=== PATIENT | female | born 1940 | race Caucasian/White ===

== ENCOUNTER → 2016-11-01 | Outpatient (CLI) | payer MEDICARE, OTHER ==
[~2016-11-01] MED LIST: ASPIRIN PO; CRESTOR PO; IMDUR PO; LEVAQUIN PO; MOEXIPRIL HCL15 MG PO; NASONEX17 GM
--- NOTE | ~2016-11-01 | CT71 ---
[facility] A Service of [facility] & [facility] RADIOLOGY TEXT RESULTS PATIENT: CL PONCE LOCATION: [facility] : 36 UNIT #: [id number] AGE: [address]: Michelle Bowers MD SEX: F ORDER DR: [id number] [place] [id number] O MR#: [id number] Acc #: [id number] NAME: CL PONCE : 1940 SEX: F STUDY DATE/TIME: 11/01/2016 10:37 UNIT: [facility] ROOM: STUDY DESCRIPTION: CT Head Wo Contrast Attending Physician: Michelle Bowers M.D. Referring Physician: Michelle Bowers M.D. Ordering Physician: Argentina Borges A.P.R.N. Primary Care Physician: Michelle Bowers M.D. MEDICAL IMAGING REPORT This report is preliminary unless electronic signature is present. EXAM CT head without contrast dated 11/01/2016 COMPARISON None HISTORY Headaches for several months, getting worse. FINDINGS CT of the head was obtained without contrast. This CT exam was performed with one or more of the following radiation dose reduction techniques: automatic exposure control, adjustment of mA and/or kV according to patient size, and iterative reconstruction. FINDINGS No acute intracranial hemorrhage, space-occupying mass, mass effect, midline shift or hydrocephalus. Diffuse age-appropriate parenchymal volume loss is seen. Nasal septum is deviated to the right. 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 Small nodular mucosal thickening is in the left maxillary antrum medially. Mild irregularity is noted in bilateral nasal bones which could be related to subtle old fracture. No acute injury is seen given normal adjacent soft tissue. Status post bilateral cataract surgery. Orbits of the ocular structures and mastoids are unremarkable. IMPRESSION 1. No demonstrable significant intracranial abnormality. 2. Nasal septal deviation to the left with large left janay bullosa of the middle turbinate and small nodular mucosal thickening in the left maxillary antrum. 3. Mild irregularity of bilateral nasal bones are noted particularly in the right. Given the lack of adjacent soft tissue swelling, it STS. [facility] A Service of [facility] & [facility] RADIOLOGY TEXT RESULTS PATIENT: CL PONCE LOCATION: [facility] : 36 UNIT #: [id number] AGE: [address]: Michelle Bowers MD SEX: F ORDER DR: could be related to old trauma with mild fracture. No acute injury. Dictated by... Dc Hannon M.D. THIS IS AN ELECTRONICALLY VERIFIED REPORT Dc Hannon M.D. at 11/02/2016 3:32 PM CPR/to TD: 11/01/2016 17:41 JOB #: [id number] MEDICAL IMAGING REPORT
== END | disposition home or self-care (01) ==
LOC: SCT 10:07
DX: G44.52 New daily persistent headache (NDPH) (principal); J34.2 Deviated nasal septum; J34.89 Other specified disorders of nose and nasal sinuses
CPT/HCPCS: 70450